=== PATIENT | female | born 1990 | race Caucasian/White ===

== ENCOUNTER 2020-07-11 10:36 | Emergency (ER) | payer MEDICAID ==
[~2020-07-11] VITALS: Ht 167.6 cm; Wt 113.4 kg
[2020-07-11 10:43] VITALS: Ht 167.6 cm; Wt 113.4 kg
[2020-07-11 11:53] VITALS: BP 135/69
== END 2020-07-11 11:53 | disposition home or self-care (01) ==
LOC: ED 10:36
DX: R76.11 Nonspecific reaction to tuberculin skin test without active tuberculosis (principal)